=== PATIENT | female | born 1965 | race Caucasian/White ===

== ENCOUNTER → 2022-02-27 16:26 | Outpatient (CLI) | payer BC, SELFPAY ==
--- NOTE | 2022-02-27 16:28 | DI.RAD.S_ITS ---
PROCEDURE: XR TOE RT MIN 2V INDICATIONS: Great toe injury TECHNIQUE: 3 views of the 1st toe(s) acquired. COMPARISON: None. FINDINGS: Bones: No fractures or dislocations. No suspicious bony lesions. Soft tissues: No suspicious soft tissue densities. Mild 1st digit soft tissue swelling. IMPRESSION: No acute fracture. No osseous lesion. If clinical suspicion and/orsymptoms persist, further assessment with repeat plainfilms, or advanced imaging (e.g., CT, MRI, or bone scan) may be helpful for further assessment. Dictated by: Jayme POLANCO Interpreted: Jensen Croft MD on 02/27/2022 at 16:53 Transcribed by: DOROTHY on 02/27/2022 at 16:54 Approved by: Jensen Croft M.D. on 02/27/2022 at 17:09
== END ==
PROVIDERS: Family Provider Family Medicine; Referring Provider Nurse Practitioner Family; Visit Provider Nurse Practitioner Family
DX: S99.921A Unspecified injury of right foot, initial encounter (principal); X58.XXXA Exposure to other specified factors, initial encounter
CPT/HCPCS: 73660